=== PATIENT | male | born 1995 | race Two or more races ===

== ENCOUNTER 2023-05-23 09:24 | Day surgery (SDC) | payer OTHER ==
[2023-05-22 10:51] LABS: Urine WBC None Seen /hpf (0 - 3)
[2023-05-22 11:01] LABS: Basophils # (auto) 0 10 ^3/uL (0-0.2); Basophils % (auto) 0.5 % (0.0-2.0); Eosinophils # (auto) 0.2 10 ^3/uL (0-0.8); Eosinophils % (auto) 2.4 % (0.0-7.0); Hematocrit 48.7 % (41.0-53.0); Hemoglobin 16.6 g/dL (13.5-17.5); Lymphocytes # (auto) 2.2 10 ^3/uL (0.4-5.4); Lymphocytes % (auto) 28.2 % (10.0-50.0); Mean Corpuscular Hemoglobin 30.2 pg (28.0-32.0); Mean Corpuscular Volume 88.7 fL (80.0-100.0); Monocytes # (auto) 0.6 10 ^3/uL (0-1.3); Monocytes % (auto) 7.3 % (0.0-12.0); Neutrophils # (auto) 4.8 10 ^3/uL (1.6-8.6); Neutrophils % (auto) 61.6 % (37.0-80.0); Nucleated Red Blood Cells % 0.1 %; Red Blood Cells 5.49 10^6/uL (4.5-5.90); Red Cell Distribution Width 13.5 % (11.8-14.3); White Blood Cell 7.9 10^3/uL (4.4-10.8)
[2023-05-22 11:20] LABS: INR 1.04 (0.9-1.15); Prothrombin Time 10.9 sec (9.3-11.8)
[2023-05-22 11:43] LABS: Urine Bacteria NONE SEEN /hpf (None Seen); Urine Blood Negative /uL (Negative); Urine Clarity Clear (Clear); Urine Color Yellow (Yellow); Urine Protein, UAD Negative (Negative); Urine Specific Gravity 1.019 (1.001-1.035); Urine Urobilinogen Normal (Negative)
[2023-05-22 16:07] LABS: Alanine Aminotransferase 27 U/L (16-61); Alkaline Phosphatase 112 U/L (45-117); Anion Gap 9 (5-15); Aspartate Aminotransferase 11 U/L (15-37); BUN/Creatinine Ratio 16.5 (10.0-20.0); Blood Urea Nitrogen 20 mg/dL (7-18); Calcium 9.4 mg/dL (8.5-10.1); Carbon Dioxide 23 mmol/L (21-32); Chloride 107 mmol/L (98-107); GFR African American 94 mL/min; GFR Non-African American 78 mL/min; Glucose 99 mg/dL (74-106); Potassium 4.6 mmol/L (3.5-5.1); Sodium 139 mmol/L (136-145)
[2023-05-22 16:08] LABS: Albumin 4.3 g/dL (3.4-5.0); Bilirubin, Total 0.5 mg/dL (0.2-1.0); Total Protein 7.4 g/dL (6.4-8.2)
[~2023-05-23] VITALS: Ht 175.3 cm; Wt 93.0 kg
[~2023-05-23 09:24] MED LIST: PRAZ1CAP48 PO
[2023-05-23] MEDS ORDERED: ceFAZolin 1GM/50ML 100 ML IV ONE (12:18)
[2023-05-23] MEDS ORDERED: LIDOCAINE W/ EPINEPHRINE 1% 20ML VIAL ONE (12:32)
[2023-05-23] MEDS ORDERED: BACITRACIN TOP OINT 1 UD PKG TOP ONE (12:33)
[2023-05-23] MEDS ORDERED: fentaNYL CITRATE 100 MCG/2 ML VL ONE (12:41)
[2023-05-23] MEDS ORDERED: MIDAZOLAM HCL 2MG/2ML 2ml VIAL (1mg/ml) ONE (12:41)
[2023-05-23] MEDS ORDERED: ONDANSETRON HCL 4 MG/2 ML VIAL ONE (13:19)
[2023-05-23] MEDS ORDERED: LIDOCAINE 2% (LOCAL ANESTH.) PF 5ml SDV ONE (13:19)
[2023-05-23] MEDS ORDERED: PROPOFOL 10 MG/ML 20 ML IV ONE (13:19)
[2023-05-23] MEDS ORDERED: KETAMINE HCL 10 ML ONE (13:24)
[2023-05-23 13:28] VITALS: PULSE 65; RESP 10; TEMP 98.2; O2SAT 99
[2023-05-23 13:40] VITALS: BP 97/55; PULSE 65; RESP 14; O2SAT 99
[2023-05-23] MEDS ORDERED: ONDANSETRON HCL 4 MG/2 ML VIAL IV PRN (13:45)
[2023-05-23] MEDS ORDERED: HYDROmorphone HCL 2 MG/ML VL/or syr IV PRN ×2 (13:45)
[2023-05-23] MEDS ORDERED: HYDROmorphone HCL 2 MG/ML VL/or syr IV ONE (13:57)
== END 2023-05-23 15:30 | disposition home or self-care (01) ==
LOC: SUR 09:24
PROVIDERS: ATTEND Urology
DX: N48.9 Disorder of penis, unspecified (principal); N47.1 Phimosis
CPT/HCPCS: 36415; 54161; 80053; 81001; 85025; 85610; 85730; 87086; J0690; J1170; J2001; J2250; J2405; J2704; J3010